=== PATIENT | female | born 1985 | race Hispanic/Latino ===

== ENCOUNTER 2017-02-23 16:16 | Outpatient (CLI) | payer OTHER ==
--- NOTE | 2017-02-23 16:34 | RAD ---
TWO VIEW CHEST 02/23/17 INDICATION: Cough. No prior comparison. FINDINGS: The lungs are mildly hyperinflated. There is no consolidation or effusion. The cardiac silhouette is within normal limits of size. IMPRESSION: No focal consolidation. POS: [id number]
== END 2017-02-23 16:17 | disposition home or self-care (01) ==
LOC: MADRAD 16:16
PROVIDERS: ATTEND Family Medicine
DX: R04.2 Hemoptysis (principal)
CPT/HCPCS: 71020